=== PATIENT | female | born 1990 | race Caucasian/White ===

== ENCOUNTER 2016-12-17 15:57 | Emergency (ER) | payer OTHER ==
[~2016-12-17] VITALS: Ht 157.5 cm; Wt 73.9 kg
--- NOTE | 2016-12-17 19:03 | NUR ---
KEIKO TAKES OVER PT. CL
--- NOTE | 2016-12-17 19:45 | NUR ---
Pt to x-ray via stretcher.
--- NOTE | 2016-12-17 20:05 | NUR ---
Pt back from x-ray.
[2016-12-17 21:51] VITALS: BP 98/57
== END 2016-12-17 21:15 | disposition home or self-care (01) ==
LOC: ED 15:59
DX: S80.02XA Contusion of left knee, initial encounter (principal); S70.02XA Contusion of left hip, initial encounter; S90.02XA Contusion of left ankle, initial encounter; R07.81 Pleurodynia; Y93.83 Activity, rough housing and horseplay
CPT/HCPCS: 71100; 73562; 73610; 99283; L1830; 99282

== ENCOUNTER 2017-01-29 16:25 | Emergency (ER) | payer OTHER ==
[~2017-01-29] VITALS: Ht 157.5 cm; Wt 72.8 kg
[2017-01-29 17:12] VITALS: BP 108/70
== END 2017-01-29 17:13 | disposition home or self-care (01) ==
LOC: ED 16:26
DX: K08.89 Other specified disorders of teeth and supporting structures (principal); F17.210 Nicotine dependence, cigarettes, uncomplicated
CPT/HCPCS: 99283